=== PATIENT | male | born 1965 | race Caucasian/White ===

== ENCOUNTER 2023-06-02 20:11 | Emergency (ER) | payer BC, SELFPAY ==
[2023-06-02 20:13] VITALS: BP 112/85
[2023-06-02] MEDS: ADACEL 0.5 ML IM (22:42)
--- NOTE | 2023-06-02 22:48 | ED.SKININJ ---
HPI-Injury
General
Chief Complaint: Skin Surface Trauma
Source: patient
Exam Limitations: none
Time Seen by Provider: 06/02/23 21:38
Nursing documentation reviewed up to this point in time: agreed with
Travel History
Have you had any contact with someone who has COVID-19?: No
Do you have any symptoms of coronavirus? Fever > 100 degrees, chills, cough, shortness of breath, sore throat, loss of taste or smell, muscle aches, or headache?: No
History of Present Illness-Injury
Is this injury a work related problem?: No
Is pt an associate of [facility]?: No
Initial Injury comments:
Cut finger on knife while cutting tomato. Has a flap laceration to tip of left 5th finger. INjury occurred tonight.
Past History
Past History
ED Past Medical History: None
ED Past Surgical History: None
Social History
Tobacco: Smoker
Drug: None
Personal:
Review of Systems
Review of Systems
Allergies reviewed?: Yes
All Other Systems: ROS reviewed and negative except as documented in HPI and ROS
Constitutional: Reports no symptoms
Musculoskeletal: Reports no symptoms
Skin: Reports other (Flap laceration to distal 5th finger)
Neurological: Reports no symptoms
Psychiatric: Reports no symptoms
Skin Exam
Laceration
Left Distal Fifth Finger:
Length in cm: 0.5
Orientation: C shaped
Type of Laceration: simple
Any active bleeding?: no active bleeding
Normal distal neurovascular exam: Yes
Range of motion: full
Phy Exam
General Physical Exam
General Presentation: well appearing and no apparent distress
General age: appears stated age
General Skin: warm and dry
General Habitus: normal
General Mental: alert
Musculoskeletal Exam
Musculoskeletal Exam: full ROM and neuro vasc intact
Skin Exam
Skin Exam: normal color, warm/dry and no rash
Psychiatric Exam
Psychiatric Exam: normal mood/affect
Course
Orders/Labs/Results
Orders:
Orders
06/02/23 22:37
Tetanus/Diphth/Acelpertussis [Adacel] 0.5 ml IM .ONCE ONE
Vital Signs
Initial and Last Documented VS:
Initial Vital Signs
Temp Pulse Resp BP Pulse Ox
98.7 F 85 20 112/85 100
06/02/23 20:13 06/02/23 20:13 06/02/23 20:13 06/02/23 20:13 06/02/23 20:13
Last Documented Vital Signs
Temp Pulse Resp BP Pulse Ox
98.7 F 85 20 112/85 100
06/02/23 20:13 06/02/23 20:13 06/02/23 20:13 06/02/23 20:13 06/02/23 20:13
Procedures
Laceration Closure
Left Distal Fifth Finger:
Status of Wound: clean
Size of Wound in cm: 1.5
Description of Wound Edges: sharp
Preparation: cleaned with saline
Revision/Debridement: routine- no revision
Wound exploration: explored to base- no FB
Type of Closure: Dermabond-skin glue
*Critical Care Note
Total Time (30-74mins, 75-104mins- exclusive of procedures): Not Applicable
ED Attending Note
-
Portions of this chart may have been created with voice recognition software.� Occasional wrong word or��sound alike� substitutions may have occurred due to the inherent limitations of voice recognition software.
Discharge Plan
Departure
Patient Disposition: Home (Routine Discharge)
Date of Disposition: 06/02/23
Time of Disposition: 22:37
Patient with high blood pressure during this ER visit?: No
Condition: Good
Covid-19: Not Applicable
Discharge Problem:
Finger laceration
Instructions: Laceration Repair With Glue (DC)
Prescriptions:
No Action
No Meds [No Current Medications]
ketorolac 10 MG tablet
10 mg PO Q6HPRN PRN (Reason: pain) Qty: 20 0RF
orphenadrine citrate [Norflex] 100 MG tablet extended release
100 mg PO BID Qty: 14 0RF
Referrals:
Inga Rubalcava, DO [Family Provider] -
Activity Restrictions/Additional Instructions:
Keep wound dry. Do not remove tape strips.
Interventions
Interventions:
*Risk Screen - Suicide Last Done: 06/02/23 20:16
*General Assessment Last Done: 06/02/23 21:48
*Neglect/Abuse Screening Last Done: 06/02/23 20:16
ED- Fall Risk Assessment Last Done: 06/02/23 21:48
*Nursing Disposition Last Done: 06/02/23 22:50
ED-Skin Assessment Last Done: 06/02/23 21:48
[2023-06-02 22:49] VITALS: BP 115/70
== END 2023-06-02 22:51 | disposition home or self-care (01) ==
LOC: EMR 20:11
PROVIDERS: EMERGENCY PHYSICIAN Emergency Medicine; FAMILY PHYSICIAN Family Medicine
DX: S61.217A Laceration without foreign body of left little finger without damage to nail, initial encounter (principal); W26.0XXA Contact with knife, initial encounter; F17.200 Nicotine dependence, unspecified, uncomplicated; Z23 Encounter for immunization
CPT/HCPCS: 99284; 12001; 90471; 90715